=== PATIENT | male | born 1970 | race Caucasian/White ===

== ENCOUNTER → 2016-03-06 | Outpatient (CLI) | payer BC ==
[~2016-03-06] MED LIST: EFF/375 PO; IBUP-103 PO; NAPR1TAB9 PO; ONDA4TAB46 PO; OXYC1TAB3 PO
[2016-03-06 09:39] LABS: BASO % 0.8 %; BASO ABS # 0.11 K/uL (0-0.2); COMPLETE YES; EOS % 3.3 %; HEMATOCRIT 43.2 % (42-52); IG% 0.2 %; LYMPH % 35.8 %; LYMPH ABS # 4.93 K/uL (1.2-3.4); MEAN CELL VOLUME 87.1 fL (80-100); MEAN CORPUSCULAR HEMOGLOBIN 29.8 pg (25-34); MEAN CORPUSCULAR HGB CONC 34.3 g/dl (32-36); MEAN PLATELET VOLUME 10.3 fL (7.4-10.4); MONO % 6.2 %; NEUT % 53.7 %; PLATELET COUNT 308 K/uL (130-400); RED BLOOD COUNT 4.96 M/uL (4.7-6.1); WHITE BLOOD COUNT 13.77 K/uL (4.8-10.8)
== END | disposition home or self-care (01) ==
LOC: C.LAB 08:42
PROVIDERS: ATTEND Family Medicine
DX: D72.829 Elevated white blood cell count, unspecified (principal)

== ENCOUNTER 2016-06-11 04:03 | Emergency (ER) | payer BC, OTHER ==
[~2016-06-11] VITALS: Ht 182.9 cm; Wt 83.8 kg
[~2016-06-11 04:03] MED LIST changes: -EFF/375 PO; -OXYC1TAB3 PO
[2016-06-11 04:06] VITALS: TEMP 36.4; Ht 182.9 cm; Wt 83.8 kg
[2016-06-11] MEDS ORDERED: PROPARACAINE HCL 0.5% OP SOLN 15 ML BTL OP STA (04:12)
[2016-06-11] MEDS ORDERED: PROPARACAINE HCL 0.5% OP SOLN 15 ML BTL ONE (04:18)
[2016-06-11] MEDS ORDERED: CIPROFLOXACIN HCL 0.3% OP SOLN 2.5 ML BTL OP STA (04:23)
--- NOTE | 2016-06-11 04:28 | EMERGENCY ROOM VISIT NOTE ---
ED Visit Note First contact with patient: 04:09 CHIEF COMPLAINT: Eye pain HISTORY OF PRESENT ILLNESS: This 46-year-old patient presents to the emergency department with family complaining of pain in the right eye today wall cutting wood with no eye protection and got sawdust in the eye. There has been a constant moderate pain and irritation, redness and tearing in the eye. There is a mild blurring of vision at times and light bothers the eye. The vision has not been decreased over all. The patient does not wear contacts. The patient rates the pain as throbbing and 5/10. The patient has not had previous injuries to this eye. Tetanus shot is up to date. Patient tried to remove the foreign bodies and irrigated the eye. He did get some solid this out. He did wear his normal glasses. He does not have his glasses with him now. REVIEW OF SYSTEMS: A 6 system review of systems was completed with positives and pertinent negatives listed in the HPI. ALLERGIES: Tylenol MEDICATIONS:none PMH:Medical Problems: (1) Herniated disc Status: Chronic (2) Inguinal hernia Status: Chronic (3) Spinal stenosis Status: Chronic SOCIAL HISTORY: No drug use PHYSICAL EXAM: Vital Signs: Reviewed Nurse's notes, vital signs stable. Visual acuity reviewed from nursing. GENERAL: This is a pleasant male, in no acute distress, but who is uncomfortable from the eye problem. Well-developed well- nourished. EYES: The pupils are equal round and reactive to light and accommodation. EOMs are full and without tenderness. There is discharge of clear tears from the right eye which is injected. There is no foreign body visible under the eyelid even after lid eversion. Funduscopic exam reveals no hemorrhages, papilledema, or other abnormalities. No foreign body was seen embedded in the cornea under slit lamp exam. The cornea was clear and no hyphema was seen. Fluorescein uptake was observed with ultraviolet light significant for a corneal abrasion 2 clock. EMERGENCY DEPARTMENT COURSE: I examined the patient. Alcaine 2 drops were placed in the patient's right eye. A slit lamp exam was performed as above. Ciloxan two drops was placed in the patient's right eye. Patient's eye was also irrigated. He was counseled on the importance of wearing eye protection. He was advised to follow-up with ophthalmology in a few days or here in the ER sooner for eye pain, vision films, worsening signs or symptoms or as needed The patient was discharged home in good condition. DIAGNOSIS: Corneal abrasion of the right eye DISCHARGE INSTRUCTIONS AND TREATMENT: Use Ciloxin two drops in right eye every two hours while awake for two days; then two drops every four hours while awake for 5 days. Oxycodone (OxyIR) 5mg: Take 1-2 pills every four hours for breakthrough pain. Avoid alcohol, operating machinery or dangerous equipment, working on ladders or roofs, DRIVING, or situations where being under the influence may be dangerous. It is recommended to use an [id number] stool softener such as Colace, 100mg twice daily while taking this medication to avoid constipation. Ibuprofen(Motrin, Advil) may be used for fever or pain. Use 600mg every six hours as needed. Take with food. Avoid using more than 2400mg in a 24 hour period. Do not use 2400mg per day for more than three consecutive days without physician direction. Prolonged inappropriate use can lead to stomach upset or ulcers. This medication can be taken if you need to drive, work, or perform activities which may be dangerous when taking narcotic pain medication. Always wear eye protection when using machinery. Return to the ED or see your eye doctor in 24-48 hours for a recheck. Return to the ED for increasing pain or changes in vision. Problem List Medical Problems: (1) Herniated disc Status: Chronic (2) Inguinal hernia Status: Chronic (3) Spinal stenosis Status: Chronic Current/Historical Medications Scheduled Ibuprofen Tab (Advil), 600 MG PO DAILY Scheduled PRN Naproxen (Aleve), 660 MG PO D2F-A3Y PRN for HERNIATED DISC Ondansetron Hcl (Zofran), 4 MG PO TID PRN for Nausea Allergies Coded Allergies: Acetaminophen (Verified Allergy, Mild, cough, 01/10/16) Vital Signs Date Time Temp Pulse Resp B/P Pulse Ox O2 Delivery O2 Flow Rate FiO2 06/11/16 04:06 36.4 76 18 146/92 98 Room Air Departure Information Referrals Larry Locke D.O. (PCP) Patient Instructions [facility]
[2016-06-11] MEDS ORDERED: OXYC1TAB3 PO (04:30)
[2016-06-11] MEDS ORDERED: OXYCODONE IR HOME PACK PO ONE (04:30)
[2016-06-11] MEDS ORDERED: EFF/375 PO (04:39)
[2016-06-11 04:48] VITALS: BP 137/86; PULSE 70; O2SAT 100
== END 2016-06-11 04:50 | disposition home or self-care (01) ==
LOC: C.EDB 04:05 → C.EDA 04:50
DX: S05.01XA Injury of conjunctiva and corneal abrasion without foreign body, right eye, initial encounter (principal); X58.XXXA Exposure to other specified factors, initial encounter; Y93.89 Activity, other specified; K40.90 Unilateral inguinal hernia, without obstruction or gangrene, not specified as recurrent; M48.00 Spinal stenosis, site unspecified; Z79.899 Other long term (current) drug therapy